=== PATIENT | male | born 1950 | race Hispanic/Latino ===

== ENCOUNTER 2017-01-28 09:56 | Day surgery (SDC) | payer OTHER ==
[~2017-01-28] VITALS: Ht 175.3 cm; Wt 79.0 kg
[~2017-01-28 09:56] MED LIST: AMBIEN10 MG PO; ASPIR-TRIN325 M1 PO; ASPIRIN81 M2 PO; Ambien PO; CRESTOR10 MG PO; FLOMAX0.4 MG PO; GABAPENTIN300 MG PO; IMDUR30 MG PO; LISINOPRIL40 MG PO; LOPRESSOR25 MG PO; NITROSTAT0.4 MG SL; NORVASC5 MG PO; PLAVIX75 MG PO; PRAZOSIN HCL1 MG PO; SERTRALINE HCL100 MG PO; WELCHOL625 MG PO; ZETIA10 MG PO
== END 2017-01-28 18:55 | disposition home or self-care (01) ==
LOC: CATH 09:56
DX: I25.118 Atherosclerotic heart disease of native coronary artery with other forms of angina pectoris (principal); I25.719 Atherosclerosis of autologous vein coronary artery bypass graft(s) with unspecified angina pectoris; I12.9 Hypertensive chronic kidney disease with stage 1 through stage 4 chronic kidney disease, or unspecified chronic kidney disease; N18.9 Chronic kidney disease, unspecified; I25.82 Chronic total occlusion of coronary artery; Z95.1 Presence of aortocoronary bypass graft; Z95.5 Presence of coronary angioplasty implant and graft; E78.2 Mixed hyperlipidemia; E11.9 Type 2 diabetes mellitus without complications; Z79.82 Long term (current) use of aspirin; Z87.891 Personal history of nicotine dependence
CPT/HCPCS: C1760; C1769; C1887; C1894; J1644; J2250; J3010

== ENCOUNTER 2017-05-19 15:27 | Observation (INO) | payer OTHER ==
[~2017-05-19] VITALS: Ht 175.3 cm; Wt 82.5 kg
[~2017-05-19 15:27] MED LIST changes: +ADULT ASPIRIN R81 MG PO; -ASPIRIN81 M2 PO; -CRESTOR10 MG PO; +CRESTOR20 MG PO; -PRAZOSIN HCL1 MG PO; +PRAZOSIN HCL5 MG PO
[2017-05-19 16:13] LABS: CHLORIDE 105 mEq/L (99-109); POTASSIUM 4.5 mEq/L (3.7-5.4); SODIUM 136 mEq/L (136-147)
[2017-05-19 16:14] LABS: ALBUMIN 4.3 g/dL (3.2-4.8)
[2017-05-19 16:16] LABS: GLUCOSE 97 mg/dL (70-99); TOTAL PROTEIN 6.8 g/dL (6.4-8.3)
[2017-05-19 16:18] LABS: TOTAL BILIRUBIN 0.2 mg/dL (0.0-1.0)
[2017-05-19 16:19] LABS: SERUM ETHYL ALCOHOL < 10 mg/dL
[2017-05-19 16:20] LABS: ALKALINE PHOSPHATASE 51 IU/L (3-129); CREATININE 1.2 mg/dL (0.6-1.3); GFR ESTIMATE (CALCULATED) > 59 mL/min/ (58.99-99999)
[2017-05-19 16:21] LABS: AST (GOT) 28 IU/L (2-34); UREA NITROGEN (BUN) 18 mg/dL (9-23)
[2017-05-19 16:23] LABS: ALT (GPT) 40 IU/L (3-49); CREATINE KINASE 158 IU/L (1-294); TOTAL CK 158 IU/L (1-294)
[2017-05-19 16:25] LABS: TROP-I INTERPRETATION NEGATIVE; TROPONIN-I < 0.01 ng/mL (0.0-0.30)
[2017-05-19 16:28] LABS: CK-MB 1.4 ng/mL (0.0-4.9); CKMB RELATIVE INDEX 0.9 (0.0-3.9)
[2017-05-19 16:33] LABS: BASOPHIL (%) 0.5 % (0-1); EOSINOPHIL (%) 7.2 % (0-5); EOSINOPHIL COUNT 0.5 K/uL (0-0.3); HEMATOCRIT 40.1 % (38.0-50.0); HEMOGLOBIN 14.1 G/DL (12.5-16.6); IMMATURE GRANULOCYTE (%) 0.3 % (0.0-0.7); LYMPHOCYTE (%) 36.7 % (15-42); LYMPHOCYTE COUNT 2.4 K/uL (1.0-2.8); MCH 31.1 PG (29.0-34.0); MCHC 35.2 G/DL (30.0-36.0); MCV 88.3 FL (86-99); MONOCYTE (%) 7.8 % (3-12); MONOCYTE COUNT 0.5 K/uL (0-0.8); NEUTROPHIL (%) 47.5 % (45-76); NEUTROPHIL COUNT 3.1 K/uL (1.8-6.4); PLATELET COUNT 193 K/uL (156-360); RBC DIS.WIDTH-CV 12.2 % (11.8-14.6); RBC DIS.WIDTH-SD 39.7 % (39-53); RED BLOOD COUNT 4.54 M/uL (4.00-5.50); WHITE BLOOD COUNT 6.4 K/uL (4.1-10.2)
[2017-05-19 18:25] LABS: TROP-I INTERPRETATION NEGATIVE; TROPONIN-I < 0.01 ng/mL (0.0-0.30)
[2017-05-19] MEDS ORDERED: FLONASE16 G1 BOTH NARES (19:59)
[2017-05-19] MEDS ORDERED: B-COMPLEX-VITA1 EACH PO (20:00)
[2017-05-19] MEDS ORDERED: RANEXA500 MG PO (20:00)
[2017-05-19] MEDS ORDERED: VITAMIN D31000 UNIT PO (20:00)
[2017-05-19 20:13] LABS: APPEARANCE CLEAR ((CLEAR)); BILIRUBIN NEGATIVE; BLOOD NEGATIVE; COLOR YELLOW ((YELLOW)); GLUCOSE (STRIP) NEGATIVE; KETONES NEGATIVE; LEUKOCYTES NEGATIVE; NITRITE NEGATIVE; PROTEIN (STRIP) NEGATIVE; SPECIFIC GRAVITY 1.041 (1.000-1.030); UCUL ADDED? NO; UROBILINOGEN 0.2 MG/DL (0.2-1.0)
[2017-05-19 23:54] VITALS: BP 147/73
[2017-05-20 04:29] VITALS: BP 110/58
[2017-05-20 06:56] VITALS: BP 114/67
[2017-05-20 11:18] VITALS: BP 107/57
[2017-05-20] MEDS ORDERED: PEPCID20 MG PO (14:05)
== END 2017-05-20 16:16 | disposition home or self-care (01) ==
LOC: EME 15:27 → EDOF 21:03 → ENRESERV 21:11 → 5WEST 23:23
PROVIDERS: Emergency Medicine
DX: R14.0 Abdominal distension (gaseous) (principal); R68.81 Early satiety; I25.810 Atherosclerosis of coronary artery bypass graft(s) without angina pectoris; I25.82 Chronic total occlusion of coronary artery; I10 Essential (primary) hypertension; E78.5 Hyperlipidemia, unspecified; I25.2 Old myocardial infarction; R01.1 Cardiac murmur, unspecified; N40.0 Benign prostatic hyperplasia without lower urinary tract symptoms; Z95.1 Presence of aortocoronary bypass graft; Z95.5 Presence of coronary angioplasty implant and graft; Z87.891 Personal history of nicotine dependence; F12.90 Cannabis use, unspecified, uncomplicated; E73.9 Lactose intolerance, unspecified; Z79.82 Long term (current) use of aspirin; Z82.49 Family history of ischemic heart disease and other diseases of the circulatory system
CPT/HCPCS: 71046; 71275; 74174; 80053; 81003; 82550; 82553; 83735; 83880; 84484; 85025; 93005; 99281; 99285; G0378; G0480; J1644

== ENCOUNTER → 2017-07-26 | Outpatient (CLI) | payer OTHER ==
[~2017-07-26] MED LIST changes: +B-COMPLEX-VITA1 EACH PO; +FLONASE16 G1 BOTH NARES; +PEPCID20 MG PO; +RANEXA500 MG PO; +VITAMIN D31000 UNIT PO
== END | disposition home or self-care (01) ==
LOC: NUC 08:08
DX: R14.0 Abdominal distension (gaseous) (principal); R68.81 Early satiety; K31.84 Gastroparesis; Z12.11 Encounter for screening for malignant neoplasm of colon
CPT/HCPCS: 78264; A9541

== ENCOUNTER 2017-08-11 11:26 | Day surgery (SDC) | payer OTHER ==
[~2017-08-11] VITALS: Ht 175.3 cm; Wt 87.8 kg
[~2017-08-11 11:26] MED LIST changes: +IMDUR60 MG PO; +NEURONTIN300 MG PO; +SEROQUEL XR50 MG PO
[2017-08-11 12:24] VITALS: BP 166/82
[2017-08-11 19:49] VITALS: BP 179/86
[2017-08-11 21:04] VITALS: BP 168/84
[2017-08-12 00:48] VITALS: BP 138/69
[2017-08-12 04:20] VITALS: BP 124/62
[2017-08-12 08:02] VITALS: BP 130/60
[2017-08-12] MEDS ORDERED: HYDROCODON-ACE1 EAC7 PO (09:21)
[2017-08-12] MEDS ORDERED: CYCLOBENZAPRINE10 MG PO (09:21)
[2017-08-12 11:44] VITALS: BP 104/56
== END 2017-08-12 13:19 | disposition home or self-care (01) ==
LOC: SDC 11:26 → 2SOUTH 17:12 → 2EAST 17:12 → ENRESERV 18:11 → 2EAST 19:23
PROC: 01N10ZZ Release Cervical Nerve, Open Approach (ICD-10-PCS; principal; 2017-08-11)
DX: M47.22 Other spondylosis with radiculopathy, cervical region (principal); M48.02 Spinal stenosis, cervical region; M40.202 Unspecified kyphosis, cervical region; M79.602 Pain in left arm; I25.10 Atherosclerotic heart disease of native coronary artery without angina pectoris; I10 Essential (primary) hypertension; M79.7 Fibromyalgia; R94.31 Abnormal electrocardiogram [ECG] [EKG]; E78.00 Pure hypercholesterolemia, unspecified; F41.9 Anxiety disorder, unspecified; Z95.1 Presence of aortocoronary bypass graft; Z95.5 Presence of coronary angioplasty implant and graft; I25.2 Old myocardial infarction; Z87.891 Personal history of nicotine dependence
CPT/HCPCS: 72020; 76000; 93005; G0378; J0690; J1100; J1170; J2250; J2405; J2710; J3010; J3370; J3480; J7643; S0020